=== PATIENT | female | born 1980 | race Caucasian/White ===

== ENCOUNTER 2018-06-19 21:17 | Emergency (ER) | payer MEDICAID, OTHER ==
[~2018-06-19] VITALS: Wt 89.9 kg
[2018-06-20] MEDS ORDERED: ACETAMINOPHEN 500 MG TAB PO STA (01:18)
--- NOTE | 2018-06-20 01:23 | ERD ---
ER Documentation Chief Complaint Chief Complaint abdominal pain x 1 day, denies vb. states 5 weeks HPI 37-year-old female presents here to emergency department for complaints of right lower pelvic abdominal pain radiating to the back that started today, patient is approximately 5 weeks , 4 para 2 1. Patient denies any vaginal bleeding. Did a urine test at home, has not seen OB specia list for this. Patient denies any hematuria or dysuria. Patient denies any fever or chills. ROS All systems reviewed and are negative except as per history of present illness. Medications Home Meds Reported Medications [none] Unknown Strength No Conflict Check 06/20/18 Allergies Allergies: Coded Allergies: No Known Drug Allergies (Verified Allergy, Unknown, 06/20/18) PMhx/Soc Medical and Surgical Hx: pt denies Medical Hx, pt denies Surgical Hx FmHx Family History: No diabetes, No coronary disease, No other Physical Exam Vitals Vital Signs Date Temp Pulse Resp B/P (MAP) Pulse Ox O2 O2 Flow FiO2 Time Delivery Rate 06/19/18 98.2 79 18 112/61 99 21:36 (78) Physical Exam GENERAL: The patient is well developed and appropriate for usual state of health, in no apparent distress. CHEST: Clear to auscultation bilaterally. There are no rales, wheezes or rhonchi. HEART: Regular rate and rhythm. No murmurs, clicks, rubs or gallops. No S3 or S4. ABDOMEN: Soft, nontender and nondistended. Good bowel sounds. No rebound or guarding. No gross peritonitis. No gross organomegaly or masses. No Felipe sign or McBurney point tenderness. BACK: No midline or flank tenderness. EXTREMITIES: Equal pulses bilaterally. There is no peripheral clubbing, cyanosis or edema. No focal swelling or erythema. Full range of motion. Grossly neurovascularly intact. NEURO: Alert and oriented. Cranial nerves 2-12 intact. Motor strength in all 4 extremities with 5/5 strength. Sensation grossly intact. Normal speech and gait. SKIN: There is no apparent rash or petechia. The skin is warm and dry. HEMATOLOGIC AND LYMPHATIC: There is no evidence of excessive bruising or lymp hedema. No gross cervical, axillary, or inguinal lymphadenopathy. Result Diagram: 06/20/187 06/20/18 012 Results 24 hrs Laboratory Tests Test 06/20/18 01:26 06/20/18 01:27 POC Beta HCG, Qualitative POSITIVE White Blood Count 11.4 10^3/ul Red Blood Count 4.65 10^6/ul Hemoglobin 13.8 g/dl Hematocrit 41.3 % Mean Corpuscular Volume 88.8 fl Mean Corpuscular Hemoglobin 29.7 pg Mean Corpuscular Hemoglobin Concent 33.4 g/dl Red Cell Distribution Width 12.9 % Platelet Count 355 10^3/UL Mean Platelet Volume 9.4 fl Immature Granulocytes % 0.600 % Neutrophils % 63.4 % Lymphocytes % 27.4 % Monocytes % 6.9 % Eosinophils % 1.4 % Basophils % 0.3 % Nucleated Red Blood Cells % 0.0 /100WBC Immature Granulocytes # 0.070 10^3/ul Neutrophils # 7.3 10^3/ul Lymphocytes # 3.1 10^3/ul Monocytes # 0.8 10^3/ul Eosinophils # 0.2 10^3/ul Basophils # 0.0 10^3/ul Nucleated Red Blood Cells # 0.0 10^3/ul Urine Color STRAW Urine Clarity CLEAR Urine pH 6.0 Urine Specific [place] 1.008 Urine Ketones NEGATIVE mg/dL Urine Nitrite NEGATIVE mg/dL Urine Bilirubin NEGATIVE mg/dL Urine Urobilinogen NEGATIVE mg/dL Urine Leukocyte Esterase NEGATIVE Gloria/ul Urine Hemoglobin NEGATIVE mg/dL Urine Glucose NEGATIVE mg/dL Urine Total Protein NEGATIVE mg/dl Sodium Level 140 mmol/L Potassium Level 4.0 mmol/L Chloride Level 101 mmol/L Carbon Dioxide Level 27 mmol/L Anion Gap 12 Blood Urea Nitrogen 13 mg/dl Creatinine 0.62 mg/dl Est Glomerular Filtrat Rate mL/min > 60 mL/min Glucose Level 105 mg/dl Calcium Level 9.4 mg/dl Total Bilirubin 0.3 mg/dl Direct Bilirubin 0.00 mg/dl Indirect Bilirubin 0.3 mg/dl Aspartate Amino Transf (AST/SGOT) 28 IU/L Alanine Aminotransferase (ALT/SGPT) 45 IU/L Alkaline Phosphatase 78 IU/L Total Protein 7.8 g/dl Albumin 4.4 g/dl Globulin 3.40 g/dl Albumin/Globulin Ratio 1.29 Beta HCG, Quantitative 2261.2 mIU/ml Current Medications Medications Dose Sig/Inocencia Start Time Status Last (Trade) Ordered Route PRN Stop Time Admin Dose Reason Admin 500 mg ONCE STAT 1/12/19 DC 06/20/18 Acetaminophen PO 01:18 01:32 (Tylenol 06/20/18 01:20 Tab) Patient was given medication for pain here in emergency department, after treatment, patient verbalized feeling much better. Patient's pain is improved. PROCEDURE: US OB 1st Tri. CLINICAL INDICATION: Bleeding TECHNIQUE: Transabdominal and transvaginal views of the pelvis are available for review. COMPARISON: No prior studies are available for comparison. FINDINGS: There is an intrauterine gestational sac, mean diameter of 5 mm corresponds to an estimated age of 5 weeks 0 days. No visible yolk sac or pole. There is no evidence of a subchorionic hemorrhage. An intramural fibroid in the posterior myometrium measures 1.9 x 2.0 x 1.5 cm and a separate fibroid in the anterior body of the uterus measures 1.1 x 1.3 cm. The right ovary measures 2.9 x 1.6 x 2.0 cm and the left ovary measures 5.2 x 3.6 x 3.1 cm. Blood flow to both ovaries is demonstrated with Doppler imaging. A 3.8 x 3.2 cm luteal cyst is identified within the left ovary. There is a small amount of simple fluid within the pelvis.. IMPRESSION: 1. Intrauterine gestational sac with mean diameter 5 mm. Size corresponds to an estimated age of 5 weeks 0 days, DENNIS 02/20/2019. Viability cannot be confirmed due to early age of the . 2. Small uterine fibroids. 3. 3.8 cm luteal cyst within the left ovary. 4. Trace pelvic free fluid. RPTAT: [facility] Physician Odette Date Time Electronically viewed and signed by Physician Odette on 06/20/2018 03:02 xB/ CC: MARIA ESTHER CASTRO NP [phone] Procedures/MDM Medical Decision Making: Symptoms of abdominal pain most likely is consistent with her uterine fibroid and luteal cyst noted in the ultrasound, patient is a viable at 5 weeks. No urinary tract infection. No symptoms of any ectopic there is low suspicion for abdominal emergencies at this time. Patients abdominal exam is normal at this time. Patients radiology exam does not show any abdominal emergencies at this time. There is low suspicion for appendicitis, cholecystitis, abdominal aortic aneurysms or peritonitis at this time. There is low suspicion for sepsis. Patient appears well and is hemodynamically stable. Disposition: Home. Condition: Stable Prescription Tylenol Instructions: Patient is advised to take medications as prescribed. Patient is advised to rest, increase fluid intake and do brat diet for next 1-2 days and progress as tolerated. Patient is advised that if symptoms are worse, severe abdominal pain, uncontrolled vomiting, high fever, severe flank pain, worst signs and symptoms, to return to the emergency department immediately. Otherwise, patient can follow up with primary care doctor in 5-7 days. Disclaimer: Inadvertent spelling and grammatical errors are likely due to EHR/dictation software use and do not reflect on the overall quality of patient care. Also, please note that the electronic time recorded on this note does not necessarily reflect the actual time of the patient encounter. Departure Diagnosis: Primary Impression: Uterine fibroid Uterine leiomyoma location: unspecified location Qualified Codes: D25.9 - Leiomyoma of uterus, unspecified Additional Impressions: Ovarian cyst Laterality: left Qualified Codes: N83.202 - Unspecified ovarian cyst, left side Intrauterine Condition: Stable Patient Instructions: Ovarian Cyst, Uterine Fibroids Additional Instructions: : Patient is advised to take medications as prescribed. Patient is advised to rest, increase fluid intake and do brat diet for next 1-2 days and progress as tolerated. Patient is advised that if symptoms are worse, severe abdominal pain, uncontrolled vomiting, high fever, severe flank pain, worst signs and symptoms, to return to the emergency department immediately. Otherwise, patient can follow up with primary care doctor in 5-7 days. MARIA ESTHER CASTRO NP Jun 20, 2018 01:23
[2018-06-20] MEDS ORDERED: ACET500C5 PO (03:11)
[2018-06-20 03:18] VITALS: BP 119/77; PULSE 80; RESP 20
== END 2018-06-20 03:19 | disposition home or self-care (01) ==
LOC: FTE 21:17
DX: O34.81 Maternal care for other abnormalities of pelvic organs, first trimester (principal); O34.11 Maternal care for benign tumor of corpus uteri, first trimester; R10.2 Pelvic and perineal pain; D25.9 Leiomyoma of uterus, unspecified; N83.202 Unspecified ovarian cyst, left side; Z3A.01 Less than 8 weeks gestation of pregnancy
CPT/HCPCS: 36415; 76801; 76817; 80053; 81003; 81025; 84702; 85025; 86900; 86901; Z7502; Z7610

== ENCOUNTER 2019-01-04 10:54 | Emergency (ER) | payer MEDICAID, OTHER ==
[~2019-01-04] VITALS: Ht 165.1 cm; Wt 99.7 kg
[~2019-01-04 10:54] MED LIST: ACET500C5 PO
[2019-01-04 10:58] VITALS: BP 127/64; PULSE 96; RESP 16; Ht 165.1 cm; Wt 99.7 kg
[2019-01-04] MEDS ORDERED: ACET500C5 PO (11:48)
--- NOTE | 2019-01-04 11:54 | ERD ---
ER Documentation Chief Complaint Chief Complaint 8 MONTHS WITH HEADACHE AND DIARRHEA X 1 WEEK HPI 38-year-old female with no past medical history, G3, P2 currently 8 months who presents with complaint of headache and diarrhea over the past week. Describes a bitemporal headache that is intermittent without blurry vision, dizziness, nausea, vomiting. States that she been had regurgitation type symptoms. Has had several bouts of diarrhea over the past week. She try to see her [employer] today but he was not in office. She otherwise denies fevers, chills, chest pain, shortness of breath, dyspnea, vaginal bleeding, body aches or pains, recent fall or trauma. At time of evaluation patient nontoxic- appearing with reassuring exam, normal triage vital signs. Has had a normal course of her without any reported complications. Has not taken any medication since that Tylenol for her symptoms. ROS All systems reviewed and are negative except as per history of present illness. Medications Home Meds Active Scripts Acetaminophen* (Tylophen*) 500 Mg Capsule, 1 CAP PO Q6H PRN for PAIN AND OR ELEVATED TEMP, #20 CAP Prov:JORDAN BABIN PA-C 01/04/19 Acetaminophen* (Tylophen*) 500 Mg Capsule, 1 CAP PO Q6H PRN for PAIN AND OR ELEVATED TEMP, #20 CAP Prov:MARIA ESTHER CASTRO NP 06/20/18 Reported Medications [none] Unknown Strength No Conflict Check 06/20/18 Allergies Allergies: Coded Allergies: No Known Drug Allergies (Verified Allergy, Unknown, 06/20/18) PMhx/Soc Hx Alcohol Use: No Hx Substance Use: No Hx Tobacco Use: No FmHx Family History: No diabetes, No coronary disease, No other Physical Exam Vitals Vital Signs Date Temp Pulse Resp B/P (MAP) Pulse Ox O2 O2 Flow FiO2 Time Delivery Rate 01/04/19 98.6 96 16 127/64 99 10:58 (85) Physical Exam I have reviewed the triage vital signs. Const: Well nourished, well developed, appears stated age Eyes: PERRL, no conjunctival injection HENT: NCAT, Neck supple without meningismus CV: RRR, Warm, well-perfused extremities RESP: CTAB, Unlabored respiratory effort GI: Gravid, soft, non-tender, non-distended, no masses MSK: No gross deformities appreciated Skin: Warm, dry. No rashes Neuro: grossly non focal Psych: Appropriate mood and affect. Procedures/MDM 38-year-old female currently 8 months who presents with complaint of headache and diarrhea. Headache primary type headache without any red flag symptoms. She reports several bouts of diarrhea but she has no signs or symptoms of dehydration warranting IV fluid administration or hospitalization. She is eating eating and drinking without issue, will take p.o. She is afebrile with normal triage vital signs. I have low suspicion in acute process warranting further emergent care or work-up at this time. Will discharge patient with Tylenol and advised to follow-up with your [employer] as planned tomorrow. Strict return precautions explained in detail to the patient all questions answered. DISPOSITION PLAN: We discussed follow up with the patient's primary care doctor within 24 to 48 hours. Patient counseled regarding my diagnostic impression and care plan. Prior to discharge all questions answered. Pt agrees with treatment plan and understands strict return precautions. Precautionary instructions provided including instructions to return to the ER if not improving or for any worsening or changing symptoms or concerns. Disclaimer: Inadvertent spelling and grammatical errors are likely due to EHR/dictation software use and do not reflect on the overall quality of patient care. Also, please note that the electronic time recorded on this note does not necessarily reflect the actual time of the patient encounter. Departure Diagnosis: Primary Impression: Diarrhea Condition: Stable Patient Instructions: Treating Diarrhea, Headache, Unspecified Referrals: CALLIE WITT MD (PCP) Additional Instructions: Call your primary care doctor TOMORROW for an appointment during the next 2-3 days.See the doctor sooner or return here if your condition worsens before your appointment time. JORDAN BABIN PA-C Jan 04, 2019 11:54
== END 2019-01-04 12:01 | disposition home or self-care (01) ==
LOC: FTE 10:54
DX: O99.89 Other specified diseases and conditions complicating pregnancy, childbirth and the puerperium (principal); R19.7 Diarrhea, unspecified; Z3A.32 32 weeks gestation of pregnancy
CPT/HCPCS: 99282

== ENCOUNTER 2019-01-18 13:19 | Outpatient (CLI) | payer MEDICAID, OTHER ==
[~2019-01-18] VITALS: Ht 160 cm; Wt 99.0 kg
[~2019-01-18 13:19] MED LIST changes: +PREN-99 PO
[2019-01-18 14:43] VITALS: Ht 160 cm; Wt 99.0 kg
[2019-01-18 14:44] VITALS: BP 113/59
--- NOTE | 2019-01-18 21:39 | PN ---
Triage Information Date/Time January 18, 2019 Reason for visit: Uterine contractions Weeks of Gestation 36w 6d /Para 4/2 Diabetes: none Hypertention: none Additional information PMHx: none. PSHx: x 2. NKDA Objective Vital Signs Date Temp Pulse Resp B/P (MAP) Pulse Ox O2 O2 Flow FiO2 Time Delivery Rate 01/18/19 98.6 113/59 Room Air 14:44 (77) Heart Rate: 130's Heart Rate Comments Accels to 150 BPM. No decels. Contractions: >10 Minutes Apart Exam Closed/thick/high. Results/Medications Imaging Results BPP 01/14 with an SHANE of 18.3. VTX. Disposition: Discharge Assessment/Plan A: IUP at 36w 6d. False labor. Previous x 2. P: D/C home. F/u in clinic in one week as scheduled. Reviewed kick counts and labor precations. ALFA MONTANO MD Jan 18, 2019 21:39
== END 2019-01-18 21:33 | disposition home or self-care (01) ==
LOC: OBT 13:19 → L-D 13:21 → OBT 21:33
PROVIDERS: ATTEND Obstetrics & Gynecology
DX: O47.03 False labor before 37 completed weeks of gestation, third trimester (principal); Z3A.36 36 weeks gestation of pregnancy
CPT/HCPCS: 76818; Z7500; G0463

== ENCOUNTER 2019-01-21 11:20 | Inpatient (IN) | payer MEDICAID ==
[~2019-01-21] VITALS: Ht 160 cm; Wt 100.8 kg
[~2019-01-21 11:20] MED LIST changes: -ACET500C5 PO
[2019-01-21 12:00] VITALS: Ht 160 cm; Wt 100.8 kg
[2019-01-21 12:01] VITALS: BP 116/63; PULSE 18; RESP 18
[2019-01-21] MEDS ORDERED: LACTATED RINGER'S 1,000 ML IV SCH (13:00)
[2019-01-21] MEDS ORDERED: METHYLERGONOVINE 0.2 MG INJ IM PRN ×2 (15:30→19:00)
[2019-01-21] MEDS ORDERED: MISOPROSTOL 200 MCG TAB PR PRN ×2 (15:30→19:00)
[2019-01-21] MEDS ORDERED: OXYTOCIN 30 UNITS/LR 500 ML IV SCH ×2 (15:30→18:38)
[2019-01-21] MEDS ORDERED: CEFAZOLIN 2 GM/50 ML (PMX) 50 ML IVPB SCH (15:30)
[2019-01-21] MEDS ORDERED: CARBOPROST 250 MCG INJ IM PRN ×2 (15:30→19:00)
[2019-01-21] MEDS ORDERED: OXYTOCIN 30 UNITS/LR 500 ML IV PRN ×2 (15:30→19:00)
[2019-01-21] MEDS: LACTATED RINGER'S 1,000 ML IV SCH ×2 (15:58→23:26)
[2019-01-21] MEDS ORDERED: ONDANSETRON 4 MG INJ IV ONE (16:00)
[2019-01-21] MEDS ORDERED: CITRIC ACID/NA CITRATE 30 ML CUP PO ONE (16:00)
[2019-01-21] MEDS ORDERED: morphine SULFATE/PF (10 MG/10 ML) INJ ONE (17:28)
[2019-01-21] MEDS ORDERED: PHENYLephrine (100 MCG/ML) 10ML SYG ONE (17:28)
[2019-01-21] MEDS ORDERED: OXYTOCIN 30 UNITS/LR 500 ML BAG IV ONE (17:28)
[2019-01-21] MEDS ORDERED: OXYTOCIN 10 UNIT INJ ONE (17:29)
[2019-01-21] MEDS ORDERED: DEXAMETHASONE 4 MG/ML 1 ML INJ ONE (17:38)
[2019-01-21] MEDS ORDERED: KETOROLAC 30 MG INJ ONE (17:38)
[2019-01-21] MEDS ORDERED: METOCLOPRAMIDE 10 MG INJ ONE (17:38)
[2019-01-21] MEDS ORDERED: NALOXONE (0.4 MG/ML) INJ IV PRN (18:00)
[2019-01-21] MEDS ORDERED: KETOROLAC 30 MG INJ IV PRN (18:00)
[2019-01-21] MEDS ORDERED: ACETAMINOPHEN 500 MG TAB PO PRN (18:00)
[2019-01-21] MEDS ORDERED: HYDROmorphONE 0.5 MG/0.5 ML SYG IV PRN ×2 (18:00)
[2019-01-21] MEDS ORDERED: NALBUPHINE HCL (10 MG/1 ML) INJ IV PRN (18:00)
[2019-01-21] MEDS ORDERED: HYDROCODONE/APAP (5/325) TAB PO PRN (18:00)
[2019-01-21] MEDS ORDERED: ONDANSETRON 4 MG INJ IV PRN (18:00)
[2019-01-21] MEDS ORDERED: morphine 2 MG INJ IV PRN ×2 (18:00)
[2019-01-21] MEDS ORDERED: OXYCODONE/ACETAMINOPHEN (5/325) TAB PO PRN ×2 (19:00)
[2019-01-21] MEDS ORDERED: NACL 0.9% 3 ML SYG IV SCH (19:00)
[2019-01-21] MEDS ORDERED: LANOLIN HPA 1 PKT TOP PRN (19:00)
[2019-01-21 22:00] VITALS: BP 118/71; PULSE 83; RESP 20
[2019-01-21] MEDS: DIPHENHYDRAMINE 50 MG INJ IV PRN (23:56)
[2019-01-22] VITALS: BP 111/56; PULSE 78; RESP 18
[2019-01-22] MEDS: CEFAZOLIN 2 GM/50 ML (PMX) 50 ML IVPB SCH ×2 (02:57→11:20)
[2019-01-22 03:45] VITALS: BP 101/59; PULSE 75; RESP 18
[2019-01-22] MEDS: IBUPROFEN 600 MG TAB PO SCH ×5 (06:00→23:34)
[2019-01-22 08:30] VITALS: BP_SYST 109; BP_SYST 99; BP_DIAS 51; BP_DIAS 56; PULSE 65; PULSE 75; RESP 65; RESP 75
[2019-01-22] MEDS: DIPHENHYDRAMINE 50 MG INJ IV PRN (12:36)
[2019-01-22] MEDS: LACTATED RINGER'S 1,000 ML IV SCH ×2 (12:36→15:26)
[2019-01-22 17:39] VITALS: BP 95/54; PULSE 78; RESP 18
[2019-01-22 21:30] VITALS: BP 134/72; PULSE 80; RESP 18
[2019-01-23] MEDS: LACTATED RINGER'S 1,000 ML IV SCH ×3 (02:47→08:28)
[2019-01-23 03:45] VITALS: BP 109/57; PULSE 74; RESP 18
[2019-01-23] MEDS: IBUPROFEN 600 MG TAB PO SCH ×4 (06:00→17:08)
[2019-01-23 08:00] VITALS: BP 128/76; PULSE 81; RESP 18
[2019-01-23 16:00] VITALS: BP 100/57; PULSE 81; RESP 18
== END 2019-01-23 18:48 | disposition home or self-care (01) | DRG 785 ==
LOC: OBT 11:20 → L-D 11:21 → OBT 15:20 → L-D 15:20 → PP1 21:39
PROVIDERS: ADMIT Obstetrics & Gynecology; ATTEND Obstetrics & Gynecology
PROC: 0UB70ZZ Excision of Bilateral Fallopian Tubes, Open Approach (ICD-10-PCS; 2019-01-21)
PROC: 10D00Z1 Extraction of Products of Conception, Low, Open Approach (ICD-10-PCS; principal; 2019-01-21 16:30)
DX: O34.211 Maternal care for low transverse scar from previous cesarean delivery (principal); Z3A.37 37 weeks gestation of pregnancy; Z37.0 Single live birth; O34.13 Maternal care for benign tumor of corpus uteri, third trimester; D25.1 Intramural leiomyoma of uterus; Z30.2 Encounter for sterilization
CPT/HCPCS: 76818; 85025; 85610; 85730; 86592; 86850; 86900; 86901; 87340; 88302; 88305; 99464; G0463; J0690; J1100; J1170; J1200; J1885; J2274; J2370; J2405; J2590; J2765; J7120